=== PATIENT | male | born 1965 | race Caucasian/White ===

== ENCOUNTER 2020-12-05 07:20 | Day surgery (SDC) | payer MEDICAID, SELFPAY ==
--- NOTE | 2020-12-05 07:27 | EKG12_ITS ---
Test Reason : PRE OP Blood Pressure : / mmHG Vent. Rate : 082 BPM Atrial Rate : 082 BPM P-R Int : 134 ms QRS Dur : 100 ms QT Int : 384 ms P-R-T Axes : 021 -01 009 degrees QTc Int : 448 ms Normal sinus rhythm Nonspecific T wave abnormality Abnormal ECG No previous ECGs available Confirmed by EVELIO SANON, DEION ([id number]), lead mechanical engineer KEYLA SWANN ([id number]) on 12/08/2020 11:02:51 AM Referred By: Jona Montiel Confirmed By:DEION FRASER MD
[2020-12-05 07:55] VITALS: BP 137/85; PULSE 83; RESP 16; TEMP 36.4; O2SAT 100; BMI 40.1
[2020-12-05 08:15] LABS: Bedside Glucose 124 mg/dL (70-110)
[2020-12-05 08:18] LABS: Hematocrit 42.7 % (40-54); Hemoglobin 14.1 g/dL (13.0-16.5); Mean Corpuscular Hgb 28.9 pg (27.0-32.0); Mean Corpuscular Volume 87.5 fL (80-94); Mean Platelet Vol. 9.4 fl (6.2-12.0); Platelet Count 251 K/mm3 (150-450); RBC Distribution Width CV 13.2 % (11.6-14.6); RBC Distribution Width SD 42.1 fl (35.1-43.9); Red Blood Count 4.88 M/mm3 (4.6-6.2); White Blood Count 6.8 K/mm3 (4.4-11.0)
[2020-12-05 08:30] LABS: Anion Gap 5 (5-15); BUN 11 mg/dL (7-18); BUN/Creat Ratio 10.5 RATIO (10-20); Calcium,Total 9.3 mg/dL (8.5-10.1); Chloride 102 mmol/L (98-107); Creatinine, Serum 1.05 mg/dL (0.70-1.30); EST Glomerular Filtration Rate 79 mL/min (>60); Est Glom Filt Rate - Afr Amer 95 mL/min (>60); Estimated Creatinine Clearance 87.65 ml/min; Glucose 127 mg/dL (74-106); Potassium 3.9 mmol/L (3.5-5.1); Sodium Level 136 mmol/L (136-145)
[2020-12-05 08:45] LABS: Hemoglobin A1c 6.5 % (3.8-5.6)
[2020-12-05] MEDS: Lactated Ringers 1,000 ML 100 ML IV ×2 (09:00→10:31)
--- NOTE | 2020-12-05 09:00 | CHO_PTH ---
PATIENT: NEO PANTOJA Jr. LOC: [facility] [place] U#:[id number] AGE/SX: 54/M ROOM: RE12/05/[address]: Dr. Jona Montiel MD : [id number] BED: DIS: 12/05/2020 SPEC #: [id number] RECD: 12/05/20 13:19 STATUS: CALISTA SHARON #: [id number] GREGORIO: 12/05/20 09:[address]: Jona Montiel DEPT: SURGICAL PATHOLOGY RECD BY: Maggie Foster Tissues: Soft tissues, NOS Procedures: Decalcification bone/plaque Surgery Specimen Level IV HEADER OPERATION: T-tube placement right ear, tympanoplasty with mastoidectomy PRE-OP DIAGNOSIS: Right ear - atrophic nonflaccid tympanic membrane, bilateral chronic mastoiditis, left ear - cholesteotoma, otorrhea TISSUE SUBMITTED: Cholesteotoma left ear MICROSCOPIC DIAGNOSIS Cholesteotoma left ear: Consistent with cholesteotoma. Moderate chronic inflammation. Pieces of bone, no pathologic diagnosis. STACEY:gilda 12/10/2020 MICROSCOPIC DESCRIPTION Slides are reviewed. GROSS DESCRIPTION Received in fixative is one container labeled with the patient's name and designated cholesteotoma left ear. The specimen consists of two pieces of coffman soft tissue mixed with focal area of bone that in aggregate measure 1.5 x 0.5 x 0.2 cm. The entire specimen is submitted in one cassette after decalcification. / STACEY:gilda 12/08/20 TC:5 CPT: 62153, 58679
[2020-12-05] MEDS: Lidocaine 1% /Epi 1:100 (20ml) 20 ML Vial (11:32)
[2020-12-05] MEDS: Epinephrine (1 mg/ml) 1 MG/ML VIAL (11:33)
[2020-12-05] MEDS: BACITRACIN/POLYMYXIN B 15 GM Tube 1 APPLIC (11:34)
--- NOTE | 2020-12-05 11:55 | PCM.OPRPT ---
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 He had suffered ongoing drainage on the left and attic cholesteatoma with chronic mastoiditis was noted as well as a significantly retracted and atrophic tympanic membrane on the right. The above procedure advised for treatment of his chronic ear disease and he was agreeable proceed. The risk of coronavirus exposure in this time. Was also discussed and he was agreeable to accept this risk in exchange for treatment of his chronic ear disease. The risks, alternatives, potential complications, and benefits were discussed at length and any questions answered to the patient and/or caregiver's satisfaction. Witnessed informed consent was obtained in the office, and the patient and/or caregiver was agreeable to proceed. Procedure went as follows: The patient was identified in the preoperative holding and brought to the operating room, and placed under general anesthesia. When appropriate anesthesia was obtained, the operative microscope was brought into the field and beginning on the right side the external auditory canal and tympanic membrane visualized. This is noted to be deeply retracted into the attic with serous effusion. A myringotomy was then placed in the anteroinferior portion the tympanic membrane and T type tympanostomy tube placed. The atrophic tympanic membrane was then gently suctioned and everted to reduce the area of retraction. Attention was then turned to the contralateral ear or attic cholesteatoma was noted. The operative ear had been site marked preoperatively in accordance with the office notes patient exam and history. The patient was then placed under general anesthesia and the left ear prepped and draped in usual sterile fashion. The facial nerve monitoring electrodes were then placed in the confirmed to be operational in accordance with the manufactures directions. The planned postauricular incision site for fascial graft harvest was then injected with 1% lidocaine with 100,000 epinephrine for a total of 6 mL. Through a #6 otic speculum the operative microscope was brought into the field and the external auditory canal and tympanic membrane visualized. The lateral canal wall was then injected with 1% lidocaine with 100,000 epinephrine for a total of 0.5 cc. Using a sickle knife the edge of the perforation was then sharply resected and withdrawn from the ear canal with a cup forceps. Using a round knife a vascular strip incision was then created and the skin flap developed toward the annulus. The middle ear cleft was then entered with a curved pick and the annulus elevated with the annulus elevator. This was then draped anteriorly to allow visualization of the middle ear cleft which is noted to be healthy in appearance. Epinephrine soaked cotton balls and placed for hemostasis and attention turned to the mastoidectomy. A 3 cm incision was then created a 15 blade scalpel posterior to the auricle at the previous injection site. The skin and subcutaneous tissues were then dissected and the posterior auricular muscle sharply transected. The subfascial plane was then widely developed and a 2.5 x 3.0 centimeter portion of loose areolar tissue was then harvested and set aside on a Sharath block for reconstruction of the tympanic membrane. Attention was then turned to the mastoidectomy. Using monopolar cautery a T-shaped incision was then made first along the temporal line and then extending an inferior limb toward the mastoid tip. The periosteum was then elevated posteriorly and superiorly to allow visualization of the mastoid bone. The periosteal elevation was then developed anteriorly to join the previously made ear canal incisions and the vascular strip everted and placed within self-retaining retractors which were then used to hold the area open. Ending with a #6 cutting bur mastoidectomy was then carried out widely saucerizing the mastoid cavity where chronic inflammatory cholesterin debris and inflamed mucosa was encountered. The dissection was then carried out along the canal wall and superiorly to join the attic where cholesteatoma was encountered. Using a #4 vicente dissection was then carried out to the facial nerve which was identified and preserved along its length. The ossicles were noted to be continuous with the stapes and the tensor tympani was then sharply transected and the malleus and incus removed along with the cholesteatoma sac from the attic as well as the chronically inflamed mastoid mucosa. A canal wall was then taken down to join her ear canal with the mastoid cavity. The dissection was then carried out along the facial recess and the chorda tympani having been involved in the chronic inflammation and cholesteatoma sac was then sacrificed and the facial ridge taken down along the facial nerve and a smooth mastoid cavity then developed. The middle ear cleft was filled with inflammatory polypoid debris which was removed to find an intact stapes. Using the facial nerve stimulator the facial nerve was stimulated confirming both this location and function upon completion of the dissection and during the expiration. Attention was then turned to reconstruction of the tympanic membrane. The middle ear cleft was then filled with Gelfoam packing material after removal of the epinephrine soaked cotton balls. The previously harvested graft tissue was then placed in an underlay fashion ensuring that it completely covered the tympanic membrane remnant. The posterior portion was then overlying the stapes capitulum and the facial nerve leaving the attic and mastoid exteriorized into the mastoid cavity. Additional Gelfoam material applied laterally to hold the composite tissue graft in place. Bacitracin ointment was then applied to secure the material. A wide meatal plasty was then created and the postauricular incision then closed with interrupted 3-0 Vicryl sutures followed by a running 5-0 Monocryl suture to the skin. An Ambrus ear pack was then placed to secure the meatal plasty opening. The patient then cleaned of prep solution and the facial nerve monitoring electrodes removed. The patient was then returned to anesthesia, revived and extubated without complication having tolerated the procedure well. Similar procedure findings a completed on the contralateral side. The patient was then returned to anesthesia, revived and returned to recovery without complication. Type of Anesthesia:: General Anesthesiologist: Fran Franklin Special Medications: none Specimen's removed: cholesteatoma left middle ear Drains: none Estimated Blood Loss (mL): 25 mL Fluids Replaced: 1000 mL Grafts/Implants Used: none - Complications none - Admit VTE Documentation VTE Present on Admission: No VTE Mechan Device Prophylaxis: SCD's VTE Pharm Prophylaxis ordered?: No
--- NOTE | 2020-12-05 12:13 | DCINST_ITS ---
- Discharge Diagnoses Current Active Problems: Current Active and Chronic Problems Chronic mastoiditis of left side (Chronic) Dysfunction of both eustachian tubes (Chronic) Cholesteatoma of attic of left ear (Chronic) Atrophic nonflaccid tympanic membrane, right ear (Chronic) You will use the following diet at home:: Regular Discharge Activity: Return to Normal Activity, May not drive while taking narcotic pain medications. Call your doctor if your incision/area has: Sudden Increased Bleeding, Increased Pain/ Swelling, Foul Smelling Discharge Call your doctor if you observe: Fever of 101 or Higher, Uncontrolled pain Allergies/Adverse Reactions: Allergies No Known Allergies Allergy (Verified 12/05/20 07:52) Medications to take at Discharge Ciprofloxacin [Cipro] 500 mg PO BID 12/03/20 Lisinopril [Zestril] 20 mg PO DAILY 12/03/20 Metformin HCl [Metformin HCl ER] 500 mg PO BID 12/03/20 Ofloxacin 0.3% [Floxin 0.3% Otic] 5 drp OTIC BID 12/03/20 RX: Primidone 50 mg PO BID 12/03/20 Orders to be completed after discharge: Basic Metabolic Profile (BMP) Time Frame: 12/05/20, Facility: [facility], Location: Laboratory CBC-Complete Blood Cnt No Diff Time Frame: 12/05/20, Facility: [facility], Location: Laboratory Hemoglobin A1c Time Frame: 12/05/20, Facility: [facility], Location: Laboratory Primary Care Physician: LORRIE VAZQUEZ [Other] Test Results: Test results from this visit will be discussed in further detail at your follow- up appointment, if applicable. Please Follow Up With: Jona Montiel MD - [place] office When: next week
[2020-12-05 12:15] VITALS: BP 100/67; BP 137/85; PULSE 76; RESP 16; TEMP 36.1; O2SAT 100
[2020-12-05 12:30] VITALS: BP 137/85; BP 95/68; PULSE 67; RESP 16; O2SAT 100
[2020-12-05 12:41] LABS: Bedside Glucose 106 mg/dL (70-110)
[2020-12-05 12:45] VITALS: BP 137/85; BP 93/62; PULSE 64; RESP 16; O2SAT 100
[2020-12-05 13:00] VITALS: BP 137/85; BP 96/67; PULSE 63; RESP 16; TEMP 36.5; O2SAT 100
[2020-12-05] MEDS: Ibuprofen 200 MG Tablet 400 MG PO (13:31)
[2020-12-05 13:45] VITALS: BP 122/77; BP 137/85; PULSE 65; RESP 16; TEMP 36.3; O2SAT 99
== END 2020-12-05 13:50 | disposition home or self-care (01) ==
LOC: SDC 07:22 → AC 07:23
PROVIDERS: Anesthesiology; Referring Provider Otolaryngology; Visit Provider Otolaryngology
PROC: (CPT 69641; principal; 2020-12-05 08:45)
DX: H69.83 Other specified disorders of Eustachian tube, bilateral (principal); H71.02 Cholesteatoma of attic, left ear; H70.12 Chronic mastoiditis, left ear; H90.2 Conductive hearing loss, unspecified; E11.9 Type 2 diabetes mellitus without complications; Z79.84 Long term (current) use of oral hypoglycemic drugs; I10 Essential (primary) hypertension; Z79.899 Other long term (current) drug therapy; F17.200 Nicotine dependence, unspecified, uncomplicated; G47.30 Sleep apnea, unspecified
CPT/HCPCS: 00120; 69641; 80048; 82962; 83036; 85027; 88304; 88305; 88311; 93005; J7120; J0330; J2405